=== PATIENT | male | born 1960 | race Caucasian/White ===

== ENCOUNTER 2021-05-27 09:31 | Emergency (ER) | payer OTHER, SELFPAY ==
[2021-05-27 09:35] VITALS: BP 150/96; PULSE 82; RESP 19; TEMP 36.6; O2SAT 98; BMI 26.2
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
[2021-05-27 10:27] VITALS: BP 150/96; PULSE 82; RESP 19; TEMP 36.6; O2SAT 98
== END 2021-05-27 11:12 | disposition home or self-care (01) ==
PROVIDERS: Emergency Provider Nurse Practitioner; PCP Family Medicine
DX: S20.212A Contusion of left front wall of thorax, initial encounter (principal); S43.401A Unspecified sprain of right shoulder joint, initial encounter; V86.55XA Driver of 3- or 4- wheeled all-terrain vehicle (ATV) injured in nontraffic accident, initial encounter; Y92.89 Other specified places as the place of occurrence of the external cause
CPT/HCPCS: 71101; 73000; 73030; 99202; G0463

== ENCOUNTER → 2021-06-04 15:43 | Outpatient (CLI) | payer OTHER, SELFPAY ==
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
== END ==
PROVIDERS: PCP Family Medicine; Visit Provider Family Medicine
DX: S46.911A Strain of unspecified muscle, fascia and tendon at shoulder and upper arm level, right arm, initial encounter (principal)
CPT/HCPCS: 73221

== ENCOUNTER 2021-11-16 08:00 | Outpatient (RCR) | payer OTHER, SELFPAY | END 2021-11-16 08:05 | disposition home or self-care (01) | LOC: PT 08:00 | PROVIDERS: PCP Family Medicine; Visit Provider Orthopaedic Surgery | DX: M75.101 Unspecified rotator cuff tear or rupture of right shoulder, not specified as traumatic (principal) | CPT/HCPCS: 97010; 97014; 97016; 97110; 97140; 97163; 97164; G0283 ==